=== PATIENT | female | born 1990 | race Two or more races ===

== ENCOUNTER 2016-11-21 12:36 | Emergency (ER) | payer OTHER ==
[2016-11-21 12:40] VITALS: BP 138/86; PULSE 97; TEMP 97.9; BMI 18.3
[2016-11-21] MEDS ORDERED: KETOROLAC TROMETHAMINE 60 MG/2 ML VIAL IM ONE (13:27)
[2016-11-21] MEDS ORDERED: diazePAM 5 MG TABLET PO ONE (13:27)
[2016-11-21] MEDS ORDERED: traMADol HCL 50 MG TABLET PO ONE (13:27)
[2016-11-21] MEDS ORDERED: KETOROLAC TROMETHAMINE 60 MG/2 ML VIAL ONE (13:29)
[2016-11-21] MEDS ORDERED: diazePAM 2 MG TABLET ONE (13:30)
[2016-11-21] MEDS ORDERED: traMADol HCL 50 MG TABLET ONE (13:30)
--- NOTE | 2016-11-21 13:38 | PDOC ---
History of Present Illness - General Chief Complaint: Back Pain Stated Complaint: LOWER BACK PAIN/sciatica Time Seen by Provider: 11/21/16 13:22 History Source: Patient - History of Present Illness Occurred: reports: other Severity: reports: severe Pain Location: reports: back Past History - Past Medical History Allergies/Adverse Reactions: Allergies Allergy/AdvReac Type Severity Reaction Status Date / Time No Known Allergies Allergy Verified 11/21/16 12:40 Home Medications: Ambulatory Orders Ibuprofen [Motrin -] 600 mg PO QID #28 tablet 11/21/16 Tramadol HCl 50 mg PO Q6H #20 tablet MDD 300mg 11/21/16 Thyroid Disease: No Other medical history: Sciatica - Psycho/Social/Smoking Cessation Hx Suicidal Ideation: No Smoking History: Never smoked Information on smoking cessation initiated: No Hx Alcohol Use: No Drug/Substance Use Hx: No Substance Use Type: None Review of Systems - Review of Systems Constitutional: No: Chills, Fever ABD/GI: No: Nausea, Vomiting, Abdominal cramping : No: Dysuria, Frequency, Flank Pain, Hematuria Musculoskeletal: Yes: Back Pain. No: Neck Pain Neurological: No: Numbness, Tingling, Weakness *Physical Exam - Vital Signs Last Vital Signs Temp Pulse Resp BP Pulse Ox 97.9 F 97 H 18 138/86 100 11/21/16 12:39 11/21/16 12:39 11/21/16 12:39 11/21/16 12:39 11/21/16 12:39 - Physical Exam General Appearance: Yes: Appropriately Dressed, Moderate Distress HEENT: positive: Normal Voice Neck: positive: Supple Respiratory/Chest: negative: Respiratory Distress Gastrointestinal/Abdominal: positive: Soft. negative: Tender Musculoskeletal: negative: CVA Tenderness, Vertebral Tenderness Extremity: positive: Normal Inspection Integumentary: positive: Dry, Warm Neurologic: positive: Fully Oriented, Alert, Normal Mood/Affect, Motor Strength 5/5, Other (neg SLR, able to ambulate) Medical Decision Making - Medical Decision Making 11/21/16 13:34 26-year-old female, no significant history, presents with severe lower back pain. Patient states she developed lower back pain approximately 1 month ago. 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 States she went to [facility] 3 days ago and was diagnosed with possible left- sided sciatica. States she was started on a medrol dosepak and flexeril with no relief. Here with persistent pain. Pain located to mid lower back and radiates down posterior aspect of left leg. Pain is sharp, constant and worse with movement. No lower extremity weakness, bowel or by incontinence or saddle anesthesia. No unexplained weight loss. No dysuria, hematuria, nausea, vomiting, fever or chills. See exam Possible sciatica No red flags at this time, i.e cauda equina, infxn -pain control in ED and reassess -anticipate dc w/ document review specialist for further eval 11/21/16 14:56 Pt reports improvement in pain and requesting discharge at this time. Dc w/ rx and neuro referral *DC/Admit/Observation/Transfer Diagnosis at time of Disposition: Low back pain Qualifiers: Chronicity: acute Back pain laterality: midline Sciatica presence: unspecified whether sciatica present Qualified Code(s): M54.5 - Low back pain - Discharge Dispostion Disposition: HOME Condition at time of disposition: Improved - Prescriptions Prescriptions: Ibuprofen [Motrin -] 600 mg PO QID #28 tablet Tramadol HCl 50 mg PO Q6H #20 tablet MDD 300mg - Referrals Referrals: Lesly Partida MD [Primary Care Provider] - Yonis Lozano MD [Staff Physician] - - Patient Instructions Printed Discharge Instructions: DI for Low Back Pain Additional Instructions: Please take medications as directed. Please follow up with Dr Lozano of neurology
== END 2016-11-21 14:55 | disposition home or self-care (01) ==
LOC: JERFT 12:36
PROC: 3E0233Z Introduction of Anti-inflammatory into Muscle, Percutaneous Approach (ICD-10-PCS; principal; 2016-11-21)
DX: M54.5 Low back pain (principal)
CPT/HCPCS: 96372; 99281-25